=== PATIENT | female | born 1970 | race Caucasian/White ===

== ENCOUNTER 2024-09-23 13:34 | Emergency (ER) | payer BC, SELFPAY ==
[2024-09-23 13:40] VITALS: BP 176/115; PULSE 90; RESP 18; O2SAT 97
[2024-09-23 14:17] LABS: Abs Immature Grans 0.02 10^3/uL (0.0-0.06); Absolute Basophil Count 0.05 10^3/uL (0.0-0.2); Absolute Eosinophil Count 0.07 10^3/uL (0.0-0.7); Absolute Lymphocyte Count 1.22 10^3/uL (1.2-3.4); Absolute Monocyte Count 0.43 10^3/uL (0.1-0.8); Absolute Neutrophil Count 4.58 10^3/uL (1.2-6.7); Basophils % 0.8 %; Eosinophils % 1.1 %; HCT 43.2 % (36.0-46.0); HGB 14.2 g/dL (11.2-15.7); Immature Grans % 0.3 %; Lymphocytes % 19.2 %; MCH 30.1 pg (27.0-33.0); MCHC 32.9 % (32.0-36.0); MCV 92 fL (80-95); MPV 9.2 fL (8.0-11.0); Monocytes % 6.8 %; Neutrophils % 71.8 %; Platelet Count 260 10^3/uL (130-400); RBC 4.72 10^6/uL (3.93-5.22); RDW 12.8 % (11.7-14.6); RDW-SD 43.3 fL; WBC 6.37 10^3/uL (4.4-10.8)
[2024-09-23 14:24] LABS: Prothrombin Time 9.6 sec (9.1-11.1)
[2024-09-23 14:26] VITALS: PULSE 90; O2SAT 93
[2024-09-23 14:29] LABS: ALT 34 U/L (14-59); AST 17 U/L (15-37); Albumin 3.9 g/dL (3.4-5.0); Alkaline Phosphatase 111 U/L (46-116); Anion Gap 6.8 mmol/L (3-11); BUN 17 mg/dL (7-18); Bilirubin, Total 0.31 mg/dL (0.2-1.0); CO2 26.2 mmol/L (21.0-32.0); Chloride 109 mmol/L (98-107); Estimated GFR 66.53 (mL/min/1.73m2); Glucose 96 mg/dL (74-106); Potassium 4.4 mmol/L (3.5-5.1); Sodium 142 mmol/L (136-145); Total Protein 7.3 g/dL (6.4-8.2)
[2024-09-23 14:33] LABS: Calcium 9.1 mg/dL (8.5-10.1)
[2024-09-23 14:39] VITALS: BP 136/88; PULSE 80; PULSE 84; RESP 14; O2SAT 95
--- NOTE | 2024-09-23 15:13 | ED.GENADUL_ITS ---
Discharge Plan Disposition Patient Disposition: Home Condition: Stable Discharge Details Clinical Impression: Abnormal vaginal bleeding Primary Care Provider: Philomena,Local ED Provider: Jose Luis Rodas Home Meds and New Rx's Prescriptions: No Action No Known Home Meds Discharge Instructions Additional Instructions: Your vital signs and blood counts look good: Hemoglobin 14.4, hematocrit 43.2, platelet count 260 Monitor your bleeding, if you saturate more than 2 pads per hour for more than 2 hours please return for reevaluation or if you develop symptoms of chest pain shortness of breath or lightheadedness Please follow-up closely with your oncology team. They should be able to recommend an appropriate medication to help with the bleeding and complete additional workup that may be necessary HPI General Date/Time Provider Initiated Documentation: 09/23/24 13:42 . Limitations to Documentation: no limitations . Information obtained by: patient . HPI Narrative: 54-year-old female with past medical history of ER/IA positive breast cancer s/p mastectomy, tamoxifin & lupron presents for evaluation of vaginal bleeding. She reports that she has not had any vaginal bleeding for years while she was on the Lupron. She stopped taking the Lupron a couple of years ago. And still has not had any bleeding. Today she was hiking and felt like a sudden gush of fluid. She reports bleeding through her close and has had significant bleeding since that time. She does think that it is starting to slow down. She reports some mild lower abdominal cramping. Related Data Home Medications ?Medication ?Instructions ?Recorded ?Confirmed Unknown [No Known Home Meds] 09/23/24 09/23/24 Allergies Allergy/AdvReac Type Severity Reaction Status Date / Time No Known Allergies Allergy Unverified 09/23/24 13:43 General Stated Complaint: NETWORK SYSTEMS INTEGRATOR SANTO: 3 Exam Narrative Exam Narrative: Review of Systems: All systems reviewed & are unremarkable except as noted in HPI and below Well-developed, no acute distress NCAT PERRL, normal conjunctiva RRR not tachycardic clear bilaterally soft nontender Unlabored respiratory effort Nondistended abdomen exam performed with RN sergeant of corrections there is blood pooling in the vaginal vault, no signs of trauma, the cervix is intact and tissue appears normal, there is sl ight oozing coming from the closed cervical os Course Vital Signs Vital signs: Vital Signs Pulse 90 09/23/24 13:40 Respiratory Rate 18 09/23/24 13:40 Blood Pressure 176/115 H 09/23/24 13:40 Pulse Oximetry 97 09/23/24 13:40 Pulse 80 09/23/24 14:39 Pulse 84 09/23/24 14:39 Respiratory Rate 14 09/23/24 14:39 Blood Pressure 136/88 09/23/24 14:39 Blood Pressure Mean 104 09/23/24 14:39 Blood Pressure Position Sitting 09/23/24 13:40 Pulse Oximetry 95 09/23/24 14:39 Oxygen Delivery Method Room Air 09/23/24 13:40 Oxygen Flow Rate 0 09/23/24 13:40 Pain Level 0 09/23/24 14:23 Lab/Test Results Lab/Test Results: Laboratory Tests Range/Units 09/23/24 14:07 WBC (4.4-10.8) 10^3/uL 6.37 RBC (3.93-5.22) 10^6/uL 4.72 Hgb (11.2-15.7) g/dL 14.2 Hct (36.0-46.0) % 43.2 MCV (80-95) fL 92 MCH (27.0-33.0) pg 30.1 MCHC (32.0-36.0) % 32.9 RDW (11.7-14.6) % 12.8 Plt Count (130-400) 10^3/uL 260 MPV (8.0-11.0) fL 9.2 Immature Gran % % 0.3 Neutrophils % % 71.8 Lymphocytes % % 19.2 Monocytes % % 6.8 Eosinophils % % 1.1 Basophils % % 0.8 Nucleated RBC % (0.0-0.3) % 0.0 Absolute Neutrophils (1.2-6.7) 10^3/uL 4.58 Absolute Lymphocytes (1.2-3.4) 10^3/uL 1.22 Absolute Monocytes (0.1-0.8) 10^3/uL 0.43 Absolute Eosinophils (0.0-0.7) 10^3/uL 0.07 Absolute Basophils (0.0-0.2) 10^3/uL 0.05 PT (9.1-11.1) sec 9.6 INR (0.9-1.1) 1.0 Sodium (136-145) mmol/L 142 Potassium (3.5-5.1) mmol/L 4.4 Chloride (98-107) mmol/L 109 H Carbon Dioxide (21.0-32.0) mmol/L 26.2 Anion Gap (3-11) mmol/L 6.8 BUN (7-18) mg/dL 17 Creatinine (0.55-1.02) mg/dL 1.0 Est GFR (CKD-EPI 2020) (mL/min/1.73m2) 66.53 Glucose (74-106) mg/dL 96 Calcium (8.5-10.1) mg/dL 9.1 Total Bilirubin (0.2-1.0) mg/dL 0.31 AST (15-37) U/L 17 ALT (14-59) U/L 34 Alkaline Phosphatase (46-116) U/L 111 Total Protein (6.4-8.2) g/dL 7.3 Albumin (3.4-5.0) g/dL 3.9 Medical Decision Making Emergent evaluation of abnormal vaginal bleeding. The patient presented with a significant amount of bleeding that had taken place just prior to arrival. On evaluation she is not continuing to have significant bleeding she is hemodynamically stable. Blood counts were obtained and her hemoglobin is 14 today. The patient does have history of breast malignancy is followed by oncology in [place]. I discussed with NETWORK SYSTEMS INTEGRATOR on-call here regarding medication treatment to slow down this abnormal uterine bleeding, but given her breast cancer history particularly of progesterone receptor positivity, this would be contraindicated. Given that she is not actively exsanguinating and is hemodynamically stable with a great H&H, seems reasonable to allow her to continue to bleed. I did discuss return precautions of excessive bleeding. At the time of discharge, her bleeding had slowed almost to a stop and when she stood up did not have any gush of fluid. And the patient has sent a message to her oncology team and understands to follow-up with them closely regarding the recommendations for treatment. She will return home tomorrow, in the interim if she continues to have excessive bleeding she will return to this emergency department for further management. Quality:SDOH Health Related Social Needs: No Data to Display PFSH All Active Problems Abnormal vaginal bleeding (Acute) Social History Smoking/Tobacco Use Status: Never Smoking risk assessment performed?: Yes Alcohol Intake: current Alcohol Intake frequency: a few times a week Alcohol type: wine Drug use: Never Substance use type: does not use Do you feel safe at home: Yes Do you feel safe in your relationship?: Yes
== END 2024-09-23 14:56 | disposition home or self-care (01) ==
PROVIDERS: Emergency Provider Emergency Medicine
DX: N93.9 Abnormal uterine and vaginal bleeding, unspecified (principal); Z85.3 Personal history of malignant neoplasm of breast; Z79.899 Other long term (current) drug therapy
CPT/HCPCS: 36415; 80053; 99284; 85025; 85610